=== PATIENT | female | born 1970 | race Caucasian/White ===

== ENCOUNTER 2024-11-09 10:21 | Emergency (ER) | payer BC, SELFPAY ==
[2024-11-09 10:21] VITALS: BMI 23.8
[2024-11-09 10:44] VITALS: BP 135/95
[2024-11-09] MEDS: TYLENOL 650 MG PO (12:09)
[2024-11-09] MEDS: ADACEL 0.5 ML IM (12:10)
--- NOTE | 2024-11-09 12:27 | ED.GENMED ---
History of Present Illness
General
Chief Complaint: Skin Surface Trauma
Source: patient
Exam Limitations: none
Time Seen by Provider: 11/09/24 11:58
Nursing documentation reviewed up to this point in time: agreed with
History of Present Illness
History of Present Illness:
Patient is a 54-year-old female who presents emergency department with laceration to left third digit which occurred this morning. She states that she was using a hedge tremor in her yard this morning when her hand slipped and she cut her right
third finger. No numbness/tingling or weakness in digits or hand. No other associated injuries.
Last tetanus shot unknown.
Past History
Past History
ED Past Medical History: Hypothyroidism
ED Past Surgical History: Gynecological
Social History
Tobacco: Non-smoker
Alcohol: Occasional
Drug: None
Personal:
Living: with family
Employment: Employed
Review of Systems
Review of Systems
Allergies reviewed?: Yes
All Other Systems: ROS reviewed and negative except as documented in HPI and ROS
Phy Exam
Physical Exam
Physical Exam:
Vitals: Mildly hypertensive, otherwise vital signs stable. Afebrile
General: Patient is well appearing, no acute distress
Skin: Approximately 2 cm curved very jagged laceration to the tuft of left digit. No involvement of nail. Approximately 1 cm linear laceration at medial aspect of left distal digit with good approximation of wound edges without nail involvement.
Head: Normocephalic, atraumatic
Throat: Protecting airway
Neck: Normal ROM, no cervical spine tenderness
Cardiac: Regular rate
Pulm: No apparent respiratory distress
Abdomen: Nondistended
Extremities: Laceration to left third finger and left second finger as described above. Full strength against resistance in left PT, PIP, and DIP joint. Normal capillary refill and sensation. 2+ palpable radial pulse
Neuro: Grossly intact
Psychiatric: Normal affect.
Course
Orders/Labs/Results
Orders:
Orders
11/09/24 12:05
Acetaminophen [Tylenol] 650 mg PO NOW STA
Tetanus/Diphth/Acelpertussis [Adacel] 0.5 ml IM .ONCE ONE
11/09/24 13:28
Cephalexin Monohydrate [Keflex] 500 mg PO NOW STA
Vital Signs
Initial and Last Documented VS:
Initial Vital Signs
Temp Pulse Resp BP Pulse Ox
98.5 F 86 16 135/95 98
11/09/24 10:44 11/09/24 10:44 11/09/24 10:44 11/09/24 10:44 11/09/24 10:44
Last Documented Vital Signs
Temp Pulse Resp BP Pulse Ox
98.5 F 76 16 135/95 99
11/09/24 10:44 11/09/24 12:00 11/09/24 12:00 11/09/24 10:44 11/09/24 12:28
Procedures
Laceration Closure
Left Third Finger(s):
Status of Wound: clean
Size of Wound in cm: 2
Description of Wound Edges: ragged
Preparation: cleaned with saline and cleaned with Betadine
Anesthesia: 1% Lidocaine and Digital-Regional
Revision/Debridement: routine- no revision
Wound exploration: explored to base- no FB
Type of Closure: interrupted sutures
Skin Closure Material: 5-0 nylon
Number of sutures: 6
Left Second Finger:
Status of Wound: clean
Size of Wound in cm: 1
Description of Wound Edges: sharp
Preparation: cleaned with saline and cleaned with Betadine
Revision/Debridement: routine- no revision
Wound exploration: explored to base- no FB
Type of Closure: Dermabond-skin glue
MDM/Problems Addressed
Differential Diagnosis Includes:
Not limited to: Laceration, abrasion, tendon injury, etc.
MDM/Problems Addressed:
54 year-old female with laceration to left middle finger occurring at home when using a ski base trimmer. Additional very minor laceration of right first finger. No other associated injuries. Unknown last tetanus shot. Vitals and physical exam as
above. There is an approximately two cm curved, very ragged laceration of the tuft of right distal finger. No evidence of tendon involvement. Sensation intact. Wound will require primary closure with sutures today.
Verbal consent obtained by patient. Digital block performed with adequate anesthesia. Wound thoroughly irrigated with normal saline and cleansed with Betadine. Laceration closed with 6, 5-0 nylon sutures. Bleeding well controlled. Some wound edges
very hard to approximate given associated tissue loss and nature of wound. Additional superficial laceration on left first finger irrigated approximated with skin glue.
Bulky dressing applied by RN. Will start patient on prophylactic antibiotics given nature of laceration. Discussed wound care instructions and suture removal in 10 to 14 days. She will monitor closely for signs of infection and follow up with
primary care. Return precautions discussed.
Chronic conditions affecting care:
N/A
Acute Exacerbation and/or Progression of Chronic Illness:
N/A
*Pulse Oximetry
SaO2: 99
Oxygen Mode of Delivery: Room air
Patient hypoxic: no
*EKG
Interpreted by ED Provider?: NA
*Bracelet Former Interpretation
Rate: Bracelet Former- N/A
*Critical Care Note
Total Time (30-74mins, 75-104mins- exclusive of procedures): Not Applicable
ED Attending Note
-
Portions of this chart may have been created with voice recognition software.� Occasional wrong word or��sound alike� substitutions may have occurred due to the inherent limitations of voice recognition software.
Discharge Plan
Departure
Patient Disposition: Home (Routine Discharge)
Date of Disposition: 11/09/24
Time of Disposition: 13:29
Patient with high blood pressure during this ER visit?: Yes
Condition: Good
Discharge Problem:
Laceration of left middle finger
Instructions: Wound Care (DC), Laceration Repair With Stitches (DC), BLOOD PRESSURE
Prescriptions:
New
cephalexin 500 mg capsule
500 mg PO BID 7 Days Qty: 14 0RF
No Action
levothyroxine 75 MCG tablet
75 mcg PO DAILY
Referrals:
Beti Guardado MD [Family Provider, Surgical]
Activity Restrictions/Additional Instructions:
RETURN TO THE EMERGENCY DEPARTMENT FOR INTRACTABLE PAIN, NUMBNESS/TINGLING IN AFFECTED FINGER, ANY SIGNS OF INFECTION INCLUDING FEVER, SIGNIFICANT REDNESS SWELLING OR DRAINAGE FROM WOUND, RED STREAKING AWAY FROM WOUND, WORSENING CURRENT SYMPTOMS, OR
ANY OTHER CONCERNS
- Your laceration was closed with 6 sutures today. This will need to be removed in 10 to 14 days. This can be done at primary care, urgent care, or emergency department. The laceration on your left index finger was closed with a small amount of
skin glue. This will dissolve on its own over the course of the next week.
- Keep wounds clean and dry. Wash gently with soap and water daily and keep covered until sutures are removed. You can apply a small amount of topical antibiotic. Monitor closely for signs of infection.
- Take antibiotics as directed
- Follow-up with PCP for further evaluation/management to ensure healing well.
Monitor symptoms closely and return to the emergency department with any acute worsening/new symptoms or any other concerns
Interventions
Interventions:
*Risk Screen - Suicide Last Done: 11/09/24 10:44
*General Assessment Last Done: 11/09/24 10:44
*Neglect/Abuse Screening Last Done: 11/09/24 10:44
*ED- Fall Risk Assessment Last Done: 11/09/24 10:44
*ED COVID-19 Vaccine History Last Done: 11/09/24 10:44
*Nursing Disposition Last Done: 11/09/24 13:38
ED-Skin Assessment Last Done: 11/09/24 11:56
Discharge Date and Time
Discharge Date/Time: 11/09/24 13:39
Print Language: IRISH
[2024-11-09] MEDS: KEFLEX 500 MG PO (13:36)
== END 2024-11-09 13:39 | disposition home or self-care (01) ==
LOC: EMR 10:21
PROVIDERS: EMERGENCY PHYSICIAN Emergency Medicine; FAMILY PHYSICIAN Surgery
DX: S61.213A Laceration without foreign body of left middle finger without damage to nail, initial encounter (principal); S61.210A Laceration without foreign body of right index finger without damage to nail, initial encounter; W29.3XXA Contact with powered garden and outdoor hand tools and machinery, initial encounter; Z23 Encounter for immunization; E03.9 Hypothyroidism, unspecified
CPT/HCPCS: 12002; 90471; 99283; 90715

== ENCOUNTER → 2025-02-18 08:27 | Outpatient (REF) | payer BC, SELFPAY | LOC: HWRAD 08:27 | PROVIDERS: ATTENDING PHYSICIAN Internal Medicine Pulmonary Disease; FAMILY PHYSICIAN Physician Assistant Medical | DX: J45.909 Unspecified asthma, uncomplicated (principal); R06.00 Dyspnea, unspecified; Z77.120 Contact with and (suspected) exposure to mold (toxic); R91.1 Solitary pulmonary nodule | CPT/HCPCS: 71250 ==